=== PATIENT | male | born 1950 | race Caucasian/White ===

== ENCOUNTER 2023-09-15 07:13 | Inpatient (IN) | payer MEDICARE ==
[~2023-09-15] VITALS: Ht 177.8 cm; Wt 65.1 kg
[2023-09-15] VITALS (7 sets, daily range): BP systolic 139–171; BP diastolic 79–92; PULSE 89–111; TEMP 97.7–99.5
[~2023-09-15 07:13] MED LIST: BREZTRI AEROS10.7 GM IH; CEFTIN500 MG PO; CYMBALTA 60MG60 MG PO; DESYREL 50MG50 MG PO; DOXYCYCLINE HY100 MG PO; NORVASC 5MG5 MG/TAB PO; PREDNISONE20 MG PO
[2023-09-15] MEDS ORDERED: methylPREDNISolone Sod Succ 125 MG/2 ML VIAL IV ONE (07:30)
[2023-09-15] MEDS ORDERED: NS 1,000 ML IV ONE (07:30)
[2023-09-15] MEDS ORDERED: Albuterol/Ipratropium 3 MG-0.5 MG/3 ML Neb Soln IH SCH ×2 (07:30→14:00)
[2023-09-15 07:39] LABS: HEMATOCRIT 41.9 % (42.0-52.0); HEMOGLOBIN 13.6 g/dl (13.5-18.0); MEAN CELL VOLUME 93 fl (80.0-100.0); MEAN CORPUSCULAR HEMOGLOBIN 30 pg (27-31); MEAN CORPUSCULAR HGB CONC 33 g/dl (33.0-37.0); MEAN PLATELET VOLUME 8.7 fl (7.4-10.4); PLATELET COUNT 362 K/mm3 (130-400); RED BLOOD COUNT 4.53 M/mm3 (4.20-5.60); REDCELL DISTRIBUTION WIDTH-CV 12.8 % (11.5-14.5)
[2023-09-15 07:52] LABS: ALANINE AMINOTRANSFERASE 15 U/L (0-55); ALBUMIN 3.9 gm/dL (3.4-4.8); ALKALINE PHOSPHATASE 95 U/L (40-150); ANION GAP 14 mmol/L (7-16); AST,SGOT 18 U/L (5-34); BILIRUBIN,TOTAL 0.7 mg/dL (0.2-1.2); BLOOD UREA NITROGEN 13 mg/dL (8-26); CALCIUM 9.9 mg/dL (8.4-10.2); CARBON DIOXIDE 20 mmol/L (23-31); CHLORIDE 105 mmol/L (98-107); CREATININE, serum 1.05 mg/dL (0.72-1.25); GLUCOSE 151 mg/dL (70-99); POTASSIUM 3.8 mmol/L (3.5-4.5); SODIUM 139 mmol/L (136-145); TOTAL PROTEIN 7.5 gm/dL (6.2-8.1)
[2023-09-15 07:59] LABS: TROPONIN-I < 0.010 ng/mL (0.00-0.033)
[2023-09-15 08:02] LABS: INR 1.2 (0.8-3.0); PROTHROMBIN TIME 12.6 SECONDS (9.7-12.8)
[2023-09-15 08:05] LABS: PARTIAL THROMBOPLASTIN TIME 29.1 SECONDS (26.0-37.0)
[2023-09-15 09:01] LABS: BAND 16 % (0-10); LYMPHOCYTE 4 % (20.0-51.0); NEUTROPHILS 73 % (42.0-75.2); PLATELET ESTIMATE NORMAL (NORMAL)
[2023-09-15 09:23] LABS: ARTERIAL BLD GAS O2 SATURATION 97.5 % (92-100); ARTERIAL BLOOD GAS BASE EXCESS -0.6 (-2-2); ARTERIAL BLOOD GAS HCO3 18.4 meq/L (22-26); ARTERIAL BLOOD GAS PO2 80.3 mmHg (80-100)
[2023-09-15 09:24] LABS: ARTERIAL BLOOD GAS pH 7.61 (7.35-7.45)
[2023-09-15] MEDS ORDERED: Docusate Sodium 100 MG CAP PO PRN (09:30)
[2023-09-15] MEDS ORDERED: Ondansetron 4 MG/2 ML VIAL IV PRN (09:30)
[2023-09-15] MEDS ORDERED: Acetaminophen 325 MG TAB PO PRN (09:30)
[2023-09-15] MEDS ORDERED: cefTRIAXone 1 G in Water For Injection,Sterile 10 ML IV SCH (09:30)
[2023-09-15] MEDS ORDERED: Polyethylene Glycol 3350 17 GM PDS PO PRN (09:30)
[2023-09-15] MEDS ORDERED: Azithromycin 500 MG in NS 250 ML IV SCH (09:30)
[2023-09-15] MEDS ORDERED: Albuterol/Ipratropium 3 MG-0.5 MG/3 ML Neb Soln IH PRN (09:45)
--- NOTE | 2023-09-15 10:20 | NUR ---
Pt arrived to medical unit by wheelchair from ED. Admission assessment and intake completed. Pt is A&o x4. Pt is able to ambulate with SBA from this nurse. Pt is currently on 4L of O2 by oxymask. Home medications reviewed. INT to Lt AC patent with no redness, swelling, or drainage. No skin issues noted. Pt states that he has psoriasis to his lower extremities. This nurse noted some skin scaling/flaking from heels and sides of both feet. Pt reports no pain at this time. Oriented pt to room, bathroom, and call light. Pt is at bedside. Call light within reach. Report recieved from GRETTA Obregon from ED.
[2023-09-15] MEDS ORDERED: DULoxetine 60 MG CAP PO SCH (10:50)
[2023-09-15] MEDS ORDERED: amLODIPine 5 MG TAB PO SCH (10:50)
[2023-09-15] MEDS ORDERED: Budesonide/Glycopyrrolate/Formoterol **** subs to Budesonide + Umeclid/Vilant IH SCH (10:50)
[2023-09-15] MEDS ORDERED: Doxycycline Hyclate 100 MG in NS 150 ML IV SCH (11:10)
--- NOTE | 2023-09-15 11:23 | NUR ---
Agree with YEE Burnett assessment of the patient. Patient A&Ox4. a the bedside. No further needs expressed. Call light within reach
[2023-09-15] MEDS ORDERED: Iohexol 350 - 100 ML VIAL IV ONE (12:42)
[2023-09-15] MEDS ORDERED: NS 100 ML IV SCH (12:43)
--- NOTE | 2023-09-15 16:36 | NUR ---
Pt informed this nurse that family at bedside gave the pt some Tylenol. This nurse educated pt and family about not taking medications that aren't from this facility. Pt and family verbalized understanding.
[2023-09-15 17:55] LABS: COLLECTION METHOD CLEAN CATCH
[2023-09-15 18:09] LABS: PH 5.5 (5.0-8.5); URINE APPEARANCE Clear (CLEAR/HAZY); URINE BLOOD TRACE-LYSED (NEGATIVE); URINE COLOR Yellow (YELLOW); URINE GLUCOSE Negative (NEGATIVE); URINE KETONE Negative (NEGATIVE); URINE NITRATE Negative (NEGATIVE); URINE PROTEIN(semi-quant) Negative (NEGATIVE); URINE UROBILINOGEN 0.2 E.U/dL (0.2-1.0)
[2023-09-15 18:10] LABS: SQUAMOUS EPITHELIAL 0-2 /hpf (0-10); URINE RBC 0-2 /hpf (0-2)
--- NOTE | 2023-09-15 18:51 | NUR ---
Bedside report given to GRETTA [place]. Call light within reach.
[2023-09-15] MEDS ORDERED: Budesonide Neb Susp 0.5 MG/2 ML AMP IH SCH ×2 (19:00)
[2023-09-15] MEDS ORDERED: Formoterol Neb Soln 20 MCG/2 ML UD IH SCH (19:00)
[2023-09-15] MEDS ORDERED: Ibuprofen 600 MG TAB PO ONE (19:45)
--- NOTE | 2023-09-15 20:49 | NUR ---
Patient assessed at this time, see shift assessment, reports headache, called Quoc,the PA and informed him, received an order for ibuprofen, still with oxymask at 5LPM, denies further needs, call light and personal items within reach, will continue to monitor.
[2023-09-15] MEDS ORDERED: traZODone 50 MG TAB PO SCH (21:00)
[2023-09-16] VITALS (11 sets, daily range): BP systolic 133–154; BP diastolic 67–83; PULSE 92–110; TEMP 97.7–98.2
--- NOTE | 2023-09-16 06:30 | NUR ---
Patient resting in bed, on oxymask at 4LPM, denies further needs, had an uneventful night.
[2023-09-16 07:37] LABS: HEMATOCRIT 38.8 % (42.0-52.0); HEMOGLOBIN 13.3 g/dl (13.5-18.0); MEAN CELL VOLUME 89 fl (80.0-100.0); MEAN CORPUSCULAR HEMOGLOBIN 31 pg (27-31); MEAN CORPUSCULAR HGB CONC 34 g/dl (33.0-37.0); MEAN PLATELET VOLUME 8.8 fl (7.4-10.4); PLATELET COUNT 359 K/mm3 (130-400); RED BLOOD COUNT 4.36 M/mm3 (4.20-5.60); REDCELL DISTRIBUTION WIDTH-CV 12.7 % (11.5-14.5)
[2023-09-16 08:05] LABS: BAND 6 % (0-10); LYMPHOCYTE 4 % (20.0-51.0); NEUTROPHILS 84 % (42.0-75.2); PLATELET ESTIMATE NORMAL (NORMAL)
[2023-09-16 08:11] LABS: CREATININE, serum 0.82 mg/dL (0.72-1.25); MAGNESIUM 2.1 mg/dL (1.6-2.6); POTASSIUM 3.9 mmol/L (3.5-4.5)
[2023-09-16] MEDS ORDERED: Umeclidinium/Vilanterol 62.5-25 MCG INHALATION/INHALER IH SCH (09:00)
--- NOTE | 2023-09-16 10:10 | NUR ---
adoption worker called pt's room phone due to isolation status. Pt reports he lives in [place] with his , Rosamaria [phone]. His is also DPOA-[facility] and a copy is on file. Pt sees Dr. Sanchez and obtains medications from [facility] with some difficulities. SW advised he talk to his PCP about coupons, samples, and [employer] savings program. Pt is on 4L oxygen at home and uses no other DME. He is indpendent with [employer]. Pt intends to return home when able. PT reccomends home. Discharge Plan: Home
[2023-09-16] MEDS ORDERED: dexAMETHasone 10 MG/ML VIAL IV SCH (15:00)
--- NOTE | 2023-09-16 20:00 | NUR ---
UPON SHIFT ASSESSMENT, ESTEE WAS AWAKE IN BED AND AXO X 4. LUNG SOUNDS WERE CLEAR AND VS WNL. HE REQUESTED IV STARTED AT DIFFERENT SITE AC WAS PAINFUL. LT FOREARM 22G BD STARTED. ALSO PT REQUESTED MOTRIN HE IS ALLERGIC (HIVES) TO TYLENOL. CALL PLACED TO HOSPITALIST AND ONE TIME DOSE TORB GIVEN OF MOTRIN. CALL LIGHT WITHIN REACH.
[2023-09-16] MEDS ORDERED: Ibuprofen 400 MG TAB PO ONE (21:45)
[2023-09-17] VITALS (7 sets, daily range): BP systolic 128–162; BP diastolic 72–91; PULSE 80–100; TEMP 97.4–98
--- NOTE | 2023-09-17 05:30 | NUR ---
Entered patient room to find him shivering. Assessed temp-97.3 oral. Applied blankets, changed linens and gave warm drink. Patient's VS are currently WNL.
[2023-09-17 06:50] LABS: BASO % 0.2 % (0.0-2.0); EOS % 0.1 % (0.0-4.0); GRAN # 17.8 K/mm3 (1.4-6.5); HEMATOCRIT 37.5 % (42.0-52.0); HEMOGLOBIN 12.6 g/dl (13.5-18.0); LYMPH % 5.1 % (20.0-51.0); MEAN CELL VOLUME 89 fl (80.0-100.0); MEAN CORPUSCULAR HEMOGLOBIN 30 pg (27-31); MEAN CORPUSCULAR HGB CONC 34 g/dl (33.0-37.0); MEAN PLATELET VOLUME 9.4 fl (7.4-10.4); MONO # 0.7 K/mm3 (0.1-0.6); MONO % 3.6 % (1.7-9.3); PLATELET COUNT 386 K/mm3 (130-400); RED BLOOD COUNT 4.23 M/mm3 (4.20-5.60); REDCELL DISTRIBUTION WIDTH-CV 12.8 % (11.5-14.5)
[2023-09-17 07:09] LABS: CALCIUM 9.5 mg/dL (8.4-10.2); CREATININE, serum 0.83 mg/dL (0.72-1.25); POTASSIUM 4.1 mmol/L (3.5-4.5)
[2023-09-17] MEDS ORDERED: MEDROL 4MG DOSPA4 MG PO (08:37)
[2023-09-17] MEDS ORDERED: DOXYCYCLINE 10100 MG PO (08:37)
[2023-09-17] MEDS ORDERED: PROVENTIL0.09 MG/A1 IH (08:38)
[2023-09-17] MEDS ORDERED: IPRATROPIUM BROM3 M1 IH (08:45)
--- NOTE | 2023-09-17 13:00 | NUR ---
patient discharge instructions given. iv removed. escorted out of unit.
== END 2023-09-17 13:31 | disposition home or self-care (01) | DRG 190 ==
LOC: COL.ER 07:13 → MEDICAL 09:25 → EDBEDREQ 09:55 → MEDICAL 09-17 13:31
PROVIDERS: Emergency Medicine; ADMIT Hospitalist
DX: J44.1 Chronic obstructive pulmonary disease with (acute) exacerbation (principal); J96.01 Acute respiratory failure with hypoxia; D72.829 Elevated white blood cell count, unspecified; F32.A Depression, unspecified; I10 Essential (primary) hypertension; G47.00 Insomnia, unspecified
CPT/HCPCS: J0696; J1100; J1650; J1956; J2930; J7030; Q9967

== ENCOUNTER → 2024-05-05 | Outpatient (CLI) | payer MEDICARE ==
[~2024-05-05] MED LIST changes: +DOXYCYCLINE 10100 MG PO; +IPRATROPIUM BROM3 M1 IH; +MEDROL 4MG DOSPA4 MG PO; +PROVENTIL0.09 MG/A1 IH
[2024-05-05 09:27] LABS: ARTERIAL BLD GAS O2 SATURATION 94.9 % (92-100); ARTERIAL BLD GAS TCO2 CT 25.8; ARTERIAL BLOOD GAS HCO3 24.7 meq/L (22-26); ARTERIAL BLOOD GAS PCO2 36.2 mmHg (35-45); ARTERIAL BLOOD GAS pH 7.45 (7.35-7.45)
== END ==
LOC: COL.CARD 09:00
PROVIDERS: Internal Medicine Pulmonary Disease
DX: J44.9 Chronic obstructive pulmonary disease, unspecified (principal)

== ENCOUNTER → 2024-05-11 | Outpatient (CLI) | payer MEDICARE ==
[~2024-05-11] MED LIST changes: +Albuterol 0.083% Neb Soln 2.5 MG/3 ML UD IH ONE
== END ==
LOC: COL.CARD 10:26
DX: J44.9 Chronic obstructive pulmonary disease, unspecified (principal); Z87.891 Personal history of nicotine dependence